=== PATIENT | female | born 1940 | race Caucasian/White ===

== ENCOUNTER → 2023-12-12 12:34 | Outpatient (REF) | payer MEDICARE, OTHER, SELFPAY | LOC: HWRAD 12:34 | PROVIDERS: ATTENDING PHYSICIAN Internal Medicine | DX: M81.6 Localized osteoporosis [Lequesne] (principal) | CPT/HCPCS: 77080 ==

== ENCOUNTER → 2024-01-29 14:26 | Outpatient (REF) | payer MEDICARE, OTHER, SELFPAY | LOC: HWWDC 14:26 | PROVIDERS: ATTENDING PHYSICIAN Obstetrics & Gynecology Gynecology; FAMILY PHYSICIAN Internal Medicine | DX: Z12.31 Encounter for screening mammogram for malignant neoplasm of breast (principal) | CPT/HCPCS: 77063; 77067 ==